=== PATIENT | male | born 1965 | race Caucasian/White ===

== ENCOUNTER 2019-08-11 17:31 | Outpatient (CLI) | payer MEDICAID | END 2019-08-11 17:32 | disposition critical access hospital (66) | LOC: EMS 17:31 | PROVIDERS: ATTEND Surgery | DX: K92.0 Hematemesis (principal) | CPT/HCPCS: A0425; A0427; A0999 ==

== ENCOUNTER 2019-08-11 17:56 | Emergency (ER) | payer MEDICAID ==
[2019-08-11 18:08] VITALS: BP 105/80
--- NOTE | 2019-08-11 18:19 | ED Physician Documentation ---
History of Present Illness - Stated complaint Stated Complaint: N/V - Chief complaint Chief Complaint: Abd Pain - History obtained from History obtained from: Patient (54-year-old male is brought in by EMS today with chief complaint of having hematemesis x1 today. The patient states until recently he has hears at the request of his mother and his girlfriend. He would not worry about otherwise. He denies any past medical history of having ulcers, bleeding ulcers, esophageal varices. Patient denies any drinking alcohol. He states he woke up this morning and he drank a Coca-Cola and then had nausea and emesis x1, with no blood. Since then he has been drinking water he had emesis times a couple times more without any more phoebe blood.) Review of Systems Constitutional: denies: Fever, Chills, Myalgias, Fatigue, Weight Loss, Sweats Eyes: denies: Loss of vision, Decreased vision, Photophobia, Discharge, Irritation Ears: denies: Loss of hearing, Ear pain, Drainage/discharge, Tinnitus/ringing Nose: denies: Rhinorrhea / runny nose, Congestion, Epistaxis, Sinus pressure / pain Throat: denies: Dental pain / toothache, Oral lesions / sores, Swollen tonsils Cardiac: denies: Chest pain / pressure, Palpitations, Pedal edema Respiratory: denies: Dyspnea, Cough, Hemoptysis, Wheezing GI: reports: Nausea, Vomiting, Hematemesis. denies: Abdominal Pain, Abdominal Swelling, Constipation, Diarrhea, Bloody / black stool : denies: Dysuria, Hesitancy, Hematuria Skin: denies: Rash, Lesions Musculoskeletal: reports: Other (right shoulder pain, awaiting arthorscopic surgery.). denies: Back pain, Extremity pain Neurologic: denies: Focal weakness, Numbness PD PAST MEDICAL HISTORY - Past Medical History Psych: Depression, Anxiety - Past Surgical History Past Surgical History: No - Present Medications Home Medications: Ambulatory Orders Medication Instructions Recorded Confirmed Carisoprodol [Soma] 250 mg PO 03/17/13 03/17/13 HYDROcod/ACETAM 5/325 [Vicodin 1 each PO 03/17/13 03/17/13 5/325] Benazepril HCl 1 tab PO DAILY 09/18/15 09/18/15 Citalopram [CeleXA] 40 mg PO DAILY 09/18/15 09/18/15 Pravastatin [Pravachol] 1 tab PO DAILY 09/18/15 09/18/15 hydroCHLOROthiazide [Hydrodiuril] 1 tab PO DAILY 09/18/15 09/18/15 - Allergies Allergies/Adverse Reactions: Allergies Allergy/AdvReac Type Severity Reaction Status Date / Time aspirin Allergy Severe Rash Verified 08/11/19 18:07 - Social History Does the pt smoke?: Yes Smoking Status: Current every day smoker Does the pt drink ETOH?: No Does the pt have substance abuse?: No - Immunizations Immunizations are current?: Yes - POLST Patient has POLST: No PD ED PE NORMAL - General General: Alert and oriented X 3, No acute distress, Well developed/nourished - HEENT HEENT: Atraumatic, PERRL, EOMI, Ears normal, Moist mucous membranes, Pharynx benign, Dentition benign - Neck Neck: Supple, no meningeal sign, No adenopathy - Cardiac Cardiac: RRR, No murmur, Strong equal pulses - Respiratory Respiratory: No respiratory distress, Clear bilaterally - Abdomen Abdomen: Normal bowel sounds, Soft, Non tender, Non distended, No organomegaly - Back Back: No CVA TTP, No spinal TTP - Derm Derm: Normal color, Warm and dry, No rash - Extremities Extremities: No deformity - Neuro Neuro: Alert and oriented X 3 PD ED PE EXPANDED - Extremities Extremities: Right shoulder (pain w/ limited AROM 2/2 chronic shoulder issues. waiting surgery. ) Results - Vitals Vitals: Vital Signs - 24 hr 08/11/19 18:05 Temperature 36.9 C Heart Rate 98 Respiratory 14 Rate Blood Pressure 105/80 O2 Saturation 98 Oxygen O2 Source Room air - Labs Labs: Laboratory Tests 08/11/19 08/11/19 18:30 18:30 WBC 15.6 H RBC 5.61 Hgb 15.9 Hct 48.4 MCV 86.3 MCH 28.3 MCHC 32.9 RDW 14.1 Plt Count 291 MPV 10.2 Neut # (Auto) 12.3 H Lymph # (Auto) 1.8 [place] # (Auto) 1.3 H Eos # (Auto) 0.0 Baso # (Auto) 0.1 Absolute Nucleated RBC 0.00 Nucleated RBC % 0.0 Sodium 135 Potassium 3.9 Chloride 96 L Carbon Dioxide 26 Anion Gap 13.0 BUN 41 H Creatinine 3.3 H Estimated GFR (MDRD) 20 L Glucose 97 Calcium 9.5 Total Bilirubin 0.8 AST 22 ALT 17 Alkaline Phosphatase 79 Total Protein 8.6 H Albumin 4.5 Globulin 4.1 Albumin/Globulin Ratio 1.1 Lipase 24 PD MEDICAL DECISION MAKING - ED course Complexity details: d/w patient, other (Upon arrival the patient was adamant about leaving immediately. He wanted his IV removed ambulating outside smoke cigarettes.Patient states that he is not worried about anything.) Departure - Departure Disposition: ED Elope Clinical Impression: Vomiting Qualifiers: Vomiting type: hematemesis Nausea presence: unspecified Qualified Code(s): K92.0 - Hematemesis Comments: After labs were ordered, and drawn, the patient decided he was going to leave and eloped From the ER. Discharge Date/Time: 08/11/19 18:38
[2019-08-11 18:37] LABS: BASOPHILS # (AUTO) 0.1 10^3/uL (0.0-0.1); BASOPHILS % (AUTO) 0.3 %; EOSINOPHILS % (AUTO) 0.2 %; HGB - HEMOGLOBIN 15.9 g/dL (14.0-18.0); LYMPHOCYTES # (AUTO) 1.8 10^3/uL (1.5-3.5); LYMPHOCYTES % (AUTO) 11.4 %; MEAN CORPUSCULAR HEMOGLOBIN 28.3 pg (27.0-31.0); MEAN CORPUSCULAR HGB CONC 32.9 g/dL (32.0-36.0); MEAN CORPUSCULAR VOLUME 86.3 fL (80.0-94.0); MEAN PLATELET VOLUME 10.2 fL (7.4-11.4); MONOCYTES # (AUTO) 1.3 10^3/uL (0.0-1.0); MONOCYTES % (AUTO) 8.3 %; NEUTROPHILS # (AUTO) 12.3 10^3/uL (1.5-6.6); NEUTROPHILS % (AUTO) 79.2 %; PLT - PLATELET COUNT 291 10^3/uL (130-450); RED BLOOD COUNT 5.61 10^6/uL (4.70-6.10); RED CELL DISTRIBUTION WIDTH 14.1 % (12.0-15.0); WHITE BLOOD COUNT 15.6 x10^3/uL (4.8-10.8)
[2019-08-11 18:50] LABS: ALBUMIN 4.5 g/dL (3.2-5.5); ALBUMIN/GLOBULIN RATIO 1.1 (1.0-2.2); BILIRUBIN,TOTAL 0.8 mg/dL (0.2-1.0); CALCIUM 9.5 mg/dL (8.5-10.3); CREATININE 3.3 mg/dL (0.6-1.2); TOTAL PROTEIN 8.6 g/dL (6.7-8.2)
== END 2019-08-11 18:38 | disposition left against medical advice (07) ==
LOC: EDUNIT# → ED 17:56
DX: K92.0 Hematemesis (principal); M25.511 Pain in right shoulder; F17.200 Nicotine dependence, unspecified, uncomplicated; Z53.29 Procedure and treatment not carried out because of patient's decision for other reasons
CPT/HCPCS: 36415; 80053; 83690; 85025; 99283

== ENCOUNTER 2020-01-18 14:05 | Emergency (ER) | payer MEDICAID ==
[2020-01-18] MEDS ORDERED: TETANUS/DIPHTHERIA/PERTUSSIS 0.5 ML SYRINGE IM ONE (14:51)
--- NOTE | 2020-01-18 15:00 | ED Physician Documentation ---
PD HPI UPPER EXT INJURY - Stated complaint Stated Complaint: L HAND LAC - Chief complaint Chief Complaint: Laceration - History obtained from History obtained from: Patient - History of Present Illness Location: Left, Hand (The patient slipped and fell and landed on outstretched hand with a nail puncturing into his thenar muscle area. He states it hurts. There was some bleeding initially. No numbness of the fingers. He is here for a tetanus booster and is concerned about infection.) Type of injury: Puncture wound Where injury occurred: Work Associated symptoms: Swelling. No: Weakness, Numbness Similar symptoms before: Has not had sx before Review of Systems Constitutional: denies: Fever, Chills Nose: denies: Rhinorrhea / runny nose, Congestion Throat: denies: Sore throat Respiratory: denies: Cough Neurologic: denies: Focal weakness, Numbness PD PAST MEDICAL HISTORY - Past Medical History Psych: Depression, Anxiety - Past Surgical History Past Surgical History: No - Present Medications Home Medications: Ambulatory Orders Medication Instructions Recorded Confirmed Carisoprodol [Soma] 250 mg PO 03/17/13 03/17/13 HYDROcod/ACETAM 5/325 [Vicodin 1 each PO 03/17/13 03/17/13 5/325] Benazepril HCl 1 tab PO DAILY 09/18/15 09/18/15 Citalopram [CeleXA] 40 mg PO DAILY 09/18/15 09/18/15 Pravastatin [Pravachol] 1 tab PO DAILY 09/18/15 09/18/15 hydroCHLOROthiazide [Hydrodiuril] 1 tab PO DAILY 09/18/15 09/18/15 Cephalexin [Keflex] 500 mg PO TID #15 capsule 01/18/20 Hydrocodone/Acetaminophen 1 each PO Q6H PRN #10 tablet 01/18/20 [Hydrocodone-Acetamin 5-325 mg] - Allergies Allergies/Adverse Reactions: Allergies Allergy/AdvReac Type Severity Reaction Status Date / Time aspirin Allergy Severe Rash Verified 01/18/20 14:15 - Social History Does the pt smoke?: Yes Smoking Status: Current every day smoker Does the pt drink ETOH?: No Does the pt have substance abuse?: No - Immunizations Immunizations are current?: Yes - POLST Patient has POLST: No PD ED PE NORMAL - Vitals Vital signs reviewed: Yes - General General: Alert and oriented X 3, No acute distress, Well developed/nourished - Derm Derm: Normal color, Warm and dry - Extremities Extremities: Other (left hand with puncture radial side thenar area, with small bruise dorsally in soft tissue. Some pain with thumb motion, so seems to have gone into muscle. Normal sensation and movement of thumg/indes finger. ) - Neuro Neuro: Alert and oriented X 3, No motor deficit, No sensory deficit, Normal speech Results - Vitals Vitals: Vital Signs - 24 hr 01/18/20 01/18/20 14:15 15:16 Temperature 36.5 C 36.8 C Heart Rate 81 82 Respiratory 16 18 Rate Blood Pressure 147/97 H 192/102 H O2 Saturation 97 100 Oxygen O2 Source Room air PD MEDICAL DECISION MAKING - ED course Complexity details: considered differential (he is concerned about tetanus and infection. ), d/w patient Departure - Departure Disposition: 01 Home, Self Care Clinical Impression: Puncture wound of hand Qualifiers: Encounter type: initial encounter Foreign body presence: without foreign body Laterality: left Qualified Code(s): S61.432A - Puncture wound without foreign body of left hand, initial encounter Condition: Stable Record reviewed to determine appropriate education?: Yes Instructions: ED Wound Puncture General Prescriptions: Hydrocodone/Acetaminophen [Hydrocodone-Acetamin 5-325 mg] 1 each PO Q6H PRN #10 tablet PRN Reason: Pain Cephalexin [Keflex] 500 mg PO TID #15 capsule Comments: Ibuprofen or naproxen or Tylenol for pains as needed regularly. Add pain med if needed. Light use of the left hand for couple of days. Keflex as directed for 5 days to reduce change of infection. Recheck if signs of infection. Forms: Activity restrictions Discharge Date/Time: 01/18/20 15:28
[2020-01-18 15:18] VITALS: BP 192/102
[2020-01-18] MEDS ORDERED: IBUPROFEN 600 MG TABLET PO STA (15:18)
[2020-01-18] MEDS ORDERED: cephALEXin 250 MG CAPSULE PO STA (15:18)
[2020-01-18] MEDS ORDERED: HYDROcod/ACETAM 5/325 MG TABLET PO STA (15:18)
== END 2020-01-18 15:28 | disposition home or self-care (01) ==
LOC: ED 14:05
DX: S61.432A Puncture wound without foreign body of left hand, initial encounter (principal); W01.118A Fall on same level from slipping, tripping and stumbling with subsequent striking against other sharp object, initial encounter; W45.0XXA Nail entering through skin, initial encounter; Y99.0 Civilian activity done for income or pay; Z23 Encounter for immunization; F17.200 Nicotine dependence, unspecified, uncomplicated
CPT/HCPCS: 90471; 90715; 99283; A9270

== ENCOUNTER 2020-07-06 10:29 | Outpatient (CLI) | payer MEDICAID ==
[2020-07-06 16:34] LABS: PT - PROTHROMBIN TIME 10.9 secs (9.9-12.6)
[2020-07-06 16:41] LABS: PARTIAL THROMBOPLASTIN TIME 31.3 secs (24.9-33.3)
[2020-07-06 17:15] LABS: THYROID STIMULATING HORMONE 3.11 uIU/mL (0.34-5.60)
[2020-07-06 17:21] LABS: ALBUMIN/GLOBULIN RATIO 1.1 (1.0-2.2); ALKALINE PHOSPHATASE 81 IU/L (42-121); ALT ALANINE AMINOTRANSFERASE 41 IU/L (10-60); AST ASPARTATE AMINOTRANSFERASE 41 IU/L (10-42); BILIRUBIN,TOTAL 0.4 mg/dL (0.2-1.0); BUN - BLOOD UREA NITROGEN 15 mg/dL (6-20); CALCIUM 9.1 mg/dL (8.5-10.3); CARBON DIOXIDE - CO2 28 mmol/L (21-32); CHLORIDE 99 mmol/L (101-111); CHOL/HDL RATIO 6.5 (<5.0); CHOLESTEROL 220 mg/dL; CREATININE 1.2 mg/dL (0.6-1.2); GFR - MDRD 63 (>89); GLUCOSE 160 mg/dL (70-100); HDL CHOLESTEROL 34 mg/dL; LDL CHOLESTEROL,CALCULATED 137 mg/dL; POTASSIUM 3.6 mmol/L (3.5-5.0); SODIUM 136 mmol/L (135-145); TOTAL PROTEIN 7.5 g/dL (6.7-8.2); TRIGLYCERIDES 247 mg/dL; VLDL CHOLESTEROL 49 mg/dL
[2020-07-06 20:24] LABS: ESTIMATED AVERAGE GLUCOSE 128 mg/dL (70-100); HEMOGLOBIN A1c% 6.1 % (4.27-6.07)
== END 2020-07-06 10:30 | disposition home or self-care (01) ==
LOC: LAB.S 10:29
PROVIDERS: ATTEND Family Medicine
DX: Z00.00 Encounter for general adult medical examination without abnormal findings (principal); R60.0 Localized edema
CPT/HCPCS: 36415; 80053; 80061; 81001; 83036; 83721; 83880; 84443; 85610; 85730

== ENCOUNTER 2022-08-14 15:35 | Emergency (ER) | payer MEDICAID ==
[2022-08-14 15:45] VITALS: BP 140/78
--- NOTE | 2022-08-14 16:15 | ED Physician Documentation ---
History of Present Illness - Stated complaint Stated Complaint: FEET SWELLING - Chief complaint Chief Complaint: Ext Problem - Additonal information Additional information: 57-year-old male presents emergency department for evaluation of acute swelling redness erythema and induration to the distal left foot. Patient states that this occurred overnight however intermittently over the last few years he has had swelling of both of the feet. Patient denies any fevers no falls or trauma. Denies a history of diabetes. He presents very disheveled. I asked if he had a home and he reported that he did and did not understand why I would ask that question. Review of Systems Constitutional: denies: Fever, Chills Skin: reports: Lesions PD PAST MEDICAL HISTORY - Past Medical History Cardiovascular: Hypertension Respiratory: None Neuro: None Endocrine/Autoimmune: None GI: None : None HEENT: None Psych: Depression, Anxiety Musculoskeletal: None Derm: None - Past Surgical History Past Surgical History: No Ortho: Shoulder arthroplasty - Present Medications Home Medications: Ambulatory Orders Medication Instructions Recorded Confirmed carisoprodoL [Soma] 250 mg PO 03/17/13 03/17/13 Benazepril HCl 1 tab PO DAILY 09/18/15 09/18/15 Citalopram [CeleXA] 40 mg PO DAILY 09/18/15 09/18/15 Pravastatin [Pravachol] 1 tab PO DAILY 09/18/15 09/18/15 hydroCHLOROthiazide [Hydrodiuril] 1 tab PO DAILY 09/18/15 09/18/15 Doxycycline Hyclate 100 mg PO BID #20 cap 08/14/22 HYDROcod/ACETAM 5/325 [[place] 5/325] 1 tablet PO BID PRN #10 tablet 08/14/22 - Allergies Allergies/Adverse Reactions: Allergies Allergy/AdvReac Type Severity Reaction Status Date / Time aspirin Allergy Severe Rash Verified 08/14/22 15:45 - Social History Does the pt smoke?: Yes Smoking Status: Current every day smoker Does the pt drink ETOH?: No Does the pt have substance abuse?: No - Immunizations Immunizations are current?: Yes Immunizations: TDAP >10years/unknown - POLST Patient has POLST: No PD ED PE EXPANDED - Extremities Extremities: Left foot (Swelling erythema and induration to the distal left midfoot including the dorsum of it. No open sores or lesions. No fluctuance or drainage.) Results - Vitals Vitals: Vital Signs - 24 hr 08/14/22 08/14/22 15:37 15:50 Temperature 36.5 C Heart Rate 102 H Respiratory 17 16 Rate Blood Pressure 140/78 H O2 Saturation 96 Oxygen O2 Source Room air PD Medical Decision Making - ED course Complexity details: d/w patient ED course: 57-year-old male presents to the emergency department for acute swelling erythema and induration to the distal left foot. History and exam is consistent with acute cellulitis. He is nontoxic-appearing. I will start him on doxycycline for both good staph and strep coverage. A limited amount of hydrocodone also sent to the patient's preferred pharmacy. I discussed routine care as well as the appropriate emergent return precautions. I am prescribing a short course of short-acting opioid pain medication for this patient. I have reviewed the patients [employer] and no concerning findings were noted. I have discussed that the opioids are for short term therapy only, and will not be refilled from the ED. Departure - Departure Disposition: 01 Home, Self Care Clinical Impression: Cellulitis of left foot Condition: Stable Record reviewed to determine appropriate education?: Yes Instructions: Cellulitis Dc Prescriptions: Doxycycline Hyclate 100 mg PO BID #20 cap HYDROcod/ACETAM 5/325 [[place] 5/325] 1 tablet PO BID PRN #10 tablet PRN Reason: Pain Comments: The swelling and redness on your foot is consistent with cellulitis which is a bacterial infection of the skin. I sent a prescription for an antibiotic called doxycycline to the [facility] in [place]. I have also sent a limited amount of hydrocodone to that same pharmacy. I encourage you to place a warm compress over the foot for 10 minutes 2-3 times a day. Elevate the foot is much as possible. With the antibiotics I would expect improved swelling and pain over the next 48 to 72 hours. If not improving return to the ER. I am prescribing a short course of narcotic pain medication for you. These are potentially dangerous and addictive medications that should be used carefully. These medications may constipate you. Take an [id number] stool softener (docusate) twice daily with plenty of water while taking these medications. If you go 24 hours without a bowel movement, take [id number] miralax, per package instructions. Do not drink or drive while taking these medications. If you received narcotic or sedating medications while in the emergency department, do not drive for 24 hours. Store this medication in a safe, secure place and out of reach of children. It is a violation of federal law to give or sell this medication to another person or to use in a manner other than prescribed. The ED will not refill narcotic prescriptions, including prescriptions lost or stolen. To dispose of unwanted medications: 1. [facility] at [address] in [place] has a medication drop box. They accept prescription medications (in pill form) Friday through Friday 9:00 a.m. to 5:00 p.m. 2. The [facility] [employer] accepts prescription medications (in pill form only) for disposal year round. Call for more information. 3. Contact the [facility] for the next [facility] sponsored prescription drug collection event. , [phone], or [phone]; Note that many narcotic pain relievers also contain Tylenol/acetaminophen. Please ensure that your total dose of acetaminophen from all sources does not exceed 3 g (3000 mg) per day.
== END 2022-08-14 16:25 | disposition home or self-care (01) ==
LOC: ED 15:35
DX: L03.116 Cellulitis of left lower limb (principal); F17.200 Nicotine dependence, unspecified, uncomplicated
CPT/HCPCS: 99281; 99283

== ENCOUNTER 2023-05-07 23:34 | Emergency (ER) | payer MEDICAID, OTHER ==
--- NOTE | 2023-05-08 01:09 | ED Physician Documentation ---
History of Present Illness - Stated complaint Stated Complaint: FIT - Chief complaint Chief Complaint: General - History obtained from History obtained from: Patient, Police - Additonal information Additional information: 57yM with pmh abscess to face and multiple excoriations on body p/w complaint of skin lesions and L eye pain, itching, and purulent discharge. lesions on body are varying ages. denies picking behavior. specifically denies methamphetamine use and states, "why does everybody keep asking me that?". no other complaints PD PAST MEDICAL HISTORY - Past Medical History Cardiovascular: Hypertension Respiratory: None Neuro: None Endocrine/Autoimmune: None GI: None : None HEENT: None Psych: Depression, Anxiety Musculoskeletal: None Derm: None - Past Surgical History Past Surgical History: Yes Ortho: Shoulder arthroplasty - Present Medications Home Medications: Ambulatory Orders Medication Instructions Recorded Confirmed hydroCHLOROthiazide [Hydrodiuril] 1 tab PO DAILY 09/18/15 05/07/23 Atorvastatin [Lipitor] 20 mg PO QPM 05/07/23 05/07/23 Benazepril HCl 20 mg PO DAILY 05/07/23 05/07/23 Carisoprodol [Soma] 350 mg PO DAILY PRN 05/07/23 05/07/23 DULoxetine [Cymbalta] 60 mg PO DAILY 05/07/23 05/07/23 Furosemide [Lasix] 40 mg PO DAILY 05/07/23 05/07/23 Hydrocodone/Acetaminophen 1 each PO BID PRN 05/07/23 05/07/23 [Hydrocodone-Acetamin 10-325 mg] Trazodone HCl 100 mg PO HS 05/07/23 05/07/23 - Allergies Allergies/Adverse Reactions: Allergies Allergy/AdvReac Type Severity Reaction Status Date / Time aspirin Allergy Severe Rash Verified 05/07/23 23:42 - Social History Does the pt smoke?: Yes Smoking Status: Current every day smoker Does the pt drink ETOH?: No Does the pt have substance abuse?: No - Immunizations Immunizations are current?: Yes Immunizations: TDAP >10years/unknown - POLST Patient has POLST: No PD ED PE NORMAL - Vitals Vital signs reviewed: Yes - General General: Alert and oriented X 3, No acute distress, Well developed/nourished - HEENT HEENT: Atraumatic, Other (L eye with copious purulent discharge. EOMI. PERRLA) - Derm Derm: Other (multiple lesions/excoriations on face, arms, legs without signs of cellulitis or abscess) Results - Vitals Vitals: Vital Signs - 24 hr 05/07/23 23:38 Temperature 36.0 C L Heart Rate 103 H Respiratory 18 Rate Blood Pressure 164/93 H O2 Saturation 96 Oxygen O2 Source Room air PD Medical Decision Making - ED course ED course: 57yM presents to the ED with L eye infection and with various lesions to body possibly related to drug induced picking behavior. No signs of cellulitis or abscess. Antibiotic ointment provided. return precautions given. plan to f/u with ophthalmology outpatient if no improvement in 48-72 hours. Departure - Departure Disposition: 01 Home, Self Care Clinical Impression: Conjunctivitis, Excoriation (skin-picking) disorder Condition: Stable Instructions: Conjunctivitis Comments: You were seen in the emergency department for eye infection. Use the ointment that was provided four times daily for 7 days. You should see improvement in 48- 72 hours. If not, you will need to follow up urgently with caddie supervisor or return to the ED. Please follow-up with your primary care provider and return to the emergency department if you have any new or worsening symptoms or other concerns. Forms: PCP List
[2023-05-08] MEDS: ERYTHROMYCIN OPHTH OINT 1 GM TUBE LEFTEYE SCH (01:22)
[2023-05-08 01:32] VITALS: BP 126/72; O2SAT 99
== END 2023-05-08 01:32 | disposition home or self-care (01) ==
LOC: ED 23:34
DX: H10.9 Unspecified conjunctivitis (principal); F42.4 Excoriation (skin-picking) disorder; F17.200 Nicotine dependence, unspecified, uncomplicated
CPT/HCPCS: 99282; 99283; J3490